=== PATIENT | female | born 1955 | race African-American/Black ===

== ENCOUNTER 2018-05-09 19:47 | Emergency (ER) | payer BC ==
[2018-05-09] MEDS ORDERED: ASPIRIN 81 MG TABLET, CHEWABLE PO ONE (19:59)
--- NOTE | 2018-05-09 20:34 | ER Document Report ---
ED Medical Screen (RME) - General Chief Complaint: Chest Pain > 30 Stated Complaint: CHEST PAIN Time Seen by Provider: 05/09/18 20:26 Primary Care Provider: MUNIRA LOYD MD [Primary Care Provider] - Follow up as needed Notes: Patient is a 8-year-old female who presents to the emergency department with a chief complaint of chest pain and shortness of breath. Her pain started around 1430 this afternoon. Her pain is in her anterior mid chest. She states it hurts when she stands up and when she walks. Nothing makes the pain better. The pain is constant. She was bending over at the time that she had her chest pain. She has had an episode of chest pain before and had a stress test 2 to 3 years ago when she was admitted for an ACS rule out [facility] She has not followed up with a ceramic research engineer since then. She has past medical history of hypertension, hyperlipidemia, seizures, and hypothyroidism. Exam: Lungs sounds clear; S1-S2 normal rate and rhythm I have greeted and performed a rapid initial assessment of this patient. A comprehensive ED assessment and evaluation of the patient, analysis of test results and completion of medical decision making process will be conducted by an additional ED providers. TRAVEL OUTSIDE OF THE [place] IN LAST 30 DAYS: No - Related Data Allergies/Adverse Reactions: acetaminophen [From Percocet] Allergy (Verified 05/09/18 19:48) oxycodone [From Percocet] Allergy (Verified 05/09/18 19:48) Physical Exam - Vital signs Vitals: Temp Pulse Resp BP Pulse Ox 99.3 F 93 18 152/77 H 100 05/09/18 20:11 05/09/18 20:11 05/09/18 20:11 05/09/18 20:11 05/09/18 20:11 Course - Vital Signs Vital signs: Temp Pulse Resp BP Pulse Ox 99.3 F 93 18 152/77 H 100 05/09/18 20:11 05/09/18 20:11 05/09/18 20:11 05/09/18 20:11 05/09/18 20:11 Doctor's Discharge - Discharge Referrals: MUNIRA LOYD MD [Primary Care Provider] - Follow up as needed
--- NOTE | 2018-05-09 20:46 | RADIOLOGY REPORT (SQ) ---
EXAM DESCRIPTION: XR CHEST 1 VIEW COMPLETED DATE/TME: 05/09/2018 19:59 CLINICAL HISTORY: 62 years, Female, cp Findings: Heart is not enlarged. Lungs are clear. No pneumothorax. No pleural effusions. IMPRESSION: No acute disease.
[2018-05-09 21:26] LABS: APPEARANCE,URINE CLEAR; BILIRUBIN,URINE NEGATIVE (NEGATIVE); COLOR,URINE YELLOW; GLUCOSE, URINE NEGATIVE (NEGATIVE); KETONES,URINE NEGATIVE (NEGATIVE); LEUKOCYTE ESTERASE,URINE NEGATIVE (NEGATIVE); NITRITE,URINE NEGATIVE (NEGATIVE); PROTEIN,URINE NEGATIVE (NEGATIVE); URINE SPECIFIC GRAVITY 1.012; UROBILINOGEN,URINE NEGATIVE mg/dL (<2.0)
[2018-05-09 21:39] LABS: ABSOLUTE LYMPHOCYTES (AUTO) 0.7 10^3/uL (0.5-4.7); ABSOLUTE MONOCYTES (AUTO) 0.4 10^3/uL (0.1-1.4); ABSOLUTE NEUT (AUTO) 4.8 10^3/uL (1.7-8.2); BASOPHILS % (AUTO) 0.5 % (0-2); EOSINOPHILS % (AUTO) 0.8 % (0-6); HEMATOCRIT 37.4 % (36.0-47.0); HEMOGLOBIN 12.8 g/dL (12.0-15.5); LYMPHOCYTES % (AUTO) 12.3 % (13-45); MEAN CORPUSCULAR HEMOGLOBIN 28.8 pg (27.0-33.4); MEAN CORPUSCULAR HGB CONC 34.2 g/dL (32.0-36.0); MEAN CORPUSCULAR VOLUME 84 fl (80-97); MONOCYTES % (AUTO) 7.2 % (3-13); PLATELET COUNT 227 10^3/uL (150-450); RED BLOOD COUNT 4.44 10^6/uL (3.72-5.28); RED CELL DISTRIBUTION WIDTH 15.4 % (11.5-14.0); SEGMENTED NEUTROPHILS % (AUTO) 79.2 % (42-78); TOTAL CELLS COUNTED % (AUTO) 100 %
[2018-05-09 21:53] LABS: ALANINE AMINOTRANSFERASE 28 U/L (9-52); ALBUMIN 4.4 g/dL (3.5-5.0); ALKALINE PHOSPHATASE 139 U/L (38-126); ANION GAP 10 (5-19); ASPARTATE AMINO TRANSFERASE 35 U/L (14-36); BILIRUBIN,DIRECT 0.2 mg/dL (0.0-0.4); BILIRUBIN,TOTAL 0.4 mg/dL (0.2-1.3); BLOOD UREA NITROGEN 17 mg/dL (7-20); CALCIUM 9.7 mg/dL (8.4-10.2); CARBON DIOXIDE 28 mmol/L (22-30); CHLORIDE 102 mmol/L (98-107); CREATINE KINASE 446 U/L (30-135); GLUCOSE 106 mg/dL (75-110); POTASSIUM 4.4 mmol/L (3.6-5.0); SODIUM 139.9 mmol/L (137-145); TOTAL PROTEIN 7.7 g/dL (6.3-8.2)
[2018-05-09] MEDS ORDERED: NORMAL SALINE 500 ML IV ONE (22:02)
[2018-05-09] MEDS ORDERED: KETOROLAC TROMETHAMINE INJ/PF 30 MG/1 ML SDV IV ONE (22:02)
[2018-05-09 22:05] LABS: CREATINE KINASE MB 3.46 ng/mL (<4.55); TROPONIN I < 0.012 ng/mL
--- NOTE | 2018-05-09 22:16 | ER Document Report ---
ED General - General Chief Complaint: Chest Pain > 30 Stated Complaint: CHEST PAIN Time Seen by Provider: 05/09/18 20:26 Primary Care Provider: MUNIRA LOYD MD [Primary Care Provider] - Follow up as needed JADE AREVALO MD [ACTIVE STAFF] - Follow up as needed Notes: This is a 8-year-old female patient emergency department complaining of pain on the left side of her chest. Patient states that hurts right along the sternum. Hurts with taking a deep breath. Hurts when she moves. Denies any significant shortness of breath but sometimes pain takes her breath away. No prior history of heart disease. No prior history of stroke. No significant family medical problems. TRAVEL OUTSIDE OF THE [place] IN LAST 30 DAYS: No - HPI Onset: Just prior to arrival Onset/Duration: Waxing and waning Quality of pain: Sharp Severity: Moderate Pain Level: 3 Associated symptoms: None - Related Data Allergies/Adverse Reactions: acetaminophen [From Percocet] Allergy (Verified 05/09/18 19:48) oxycodone [From Percocet] Allergy (Verified 05/09/18 19:48) Past Medical History - General Information source: Patient - Social History Smoking Status: Never Smoker Drug Abuse: None Lives with: Spouse/Significant other Family History: Reviewed & Not Pertinent Patient has suicidal ideation: No Patient has homicidal ideation: No - Past Medical History Cardiac Medical History: Reports: Hx Hypercholesterolemia, Hx Hypertension Renal/ Medical History: Denies: Hx Peritoneal Dialysis Past Surgical History: Reports: Hx Orthopedic Surgery - hip Review of Systems - Review of Systems Notes: Constitutional: denies: Chills, Diaphoresis, Fever, Malaise, Weakness EENT: denies: Eye discharge, Blurred vision, Tearing, Double vision, Nose congestion, Nose discharge, Throat swelling, Mouth pain Cardiovascular: Complains of chest pain. Shortness of breath. Respiratory: denies: Cough, Hurts to breathe, Wheezing, Shortness of breath Gastrointestinal: denies: Abdominal pain, Diarrhea, Nausea, Vomiting, Black stools, bright red blood in stool Genitourinary: denies: Burning, Dysuria, Discharge, Frequency, Flank pain, Hematuria Musculoskeletal: denies: Joint pain, Joint swelling, Muscle pain, Muscle stiffness, back pain Hematologic/Lymphatic: denies: Anemia, Easy bleeding, Easy bruising, Blood clots Neurological/Psychological: denies: Confusion, Dementia, Depression, Loss of consciousness Skin: No lesions, no masses, no skin breakdown, no abscesses Physical Exam - Vital signs Vitals: Temp Pulse Resp BP Pulse Ox 99.3 F 93 18 152/77 H 100 05/09/18 20:11 05/09/18 20:11 05/09/18 20:11 05/09/18 20:11 05/09/18 20:11 Interpretation: Normal - General General appearance: Appears well, Alert - HEENT Head: Normocephalic, Atraumatic Eyes: Normal Pupils: PERRL - Respiratory Respiratory status: No respiratory distress Chest status: Nontender Breath sounds: Normal Chest palpation: Normal - Cardiovascular Rhythm: Regular Heart sounds: Normal auscultation Murmur: No Notes: Patient has tenderness to palpation along the costochondral margin of the left sternum. Palpation reproduces patient's symptoms. - Abdominal Inspection: Normal Distension: No distension Bowel sounds: Normal Tenderness: Nontender Organomegaly: No organomegaly - Back Back: Normal, Nontender - Extremities General upper extremity: Normal inspection, Nontender, Normal color, Normal ROM, Normal temperature General lower extremity: Normal inspection, Nontender, Normal color, Normal ROM, Normal temperature, Normal weight bearing. No: Viji's sign - Neurological Neuro grossly intact: Yes Cognition: Normal Orientation: AAOx4 Leandro Coma Scale Eye Opening: Spontaneous Leandro Coma Scale Verbal: Oriented [place] Coma Scale Motor: Obeys Commands Leandro Coma Scale Total: 15 Speech: Normal Motor strength normal: LUE, RUE, LLE, RLE Sensory: Normal - Psychological Associated symptoms: Normal affect, Normal mood - Skin Skin Temperature: Warm Skin Moisture: Dry Skin Color: Normal Course - Re-evaluation Re-evalutation: 05/10/18 00:50 Patient has clearly reproducible left-sided chest wall pain where the sternum and ribs meet. This reproduces patient's pain. She has had 2 sets of cardiac troponins which were normal. Patient has had a stress test within the last 24 months which was reportedly normal. This was at [facility]. Has no significant family medical problems concerning for significant cardiac disease. Has a local provider. D-dimer was slightly elevated so a pulmonary angiogram was performed and this was normal. At this time I think patient is safe for outpatient follow-up. Patient feels better. Comfortable discharging at this time in stable condition. 05/10/18 02:34 05/10/18 02:34 Laboratory 05/09/18 05/09/18 05/09/18 20:20 21:15 21:15 WBC 6.0 RBC 4.44 Hgb 12.8 Hct 37.4 MCV 84 MCH 28.8 MCHC 34.2 RDW 15.4 H Plt Count 227 Seg Neutrophils % 79.2 H Lymphocytes % 12.3 L Monocytes % 7.2 Eosinophils % 0.8 Basophils % 0.5 Absolute Neutrophils 4.8 Absolute Lymphocytes 0.7 Absolute Monocytes 0.4 Absolute Eosinophils 0.0 Absolute Basophils 0.0 D-Dimer Sodium 139.9 Potassium 4.4 Chloride 102 Carbon Dioxide 28 Anion Gap 10 BUN 17 Creatinine 0.94 Est GFR ( Amer) > 60 Est GFR (Non-Af Amer) > 60 Glucose 106 Calcium 9.7 Total Bilirubin 0.4 Direct Bilirubin 0.2 Neonat Total Bilirubin Not Reportable Neonat Direct Bilirubin Not Reportable Neonat Indirect Bili Not Reportable AST 35 ALT 28 Alkaline Phosphatase 139 H Creatine Kinase 446 H CK-MB (CK-2) Troponin I Total Protein 7.7 Albumin 4.4 Urine Color YELLOW Urine Appearance CLEAR Urine pH 6.0 Ur Specific [place] 1.012 Urine Protein NEGATIVE Urine Glucose (UA) NEGATIVE Urine Ketones NEGATIVE Urine Blood SMALL H Urine Nitrite NEGATIVE Urine Bilirubin NEGATIVE Urine Urobilinogen NEGATIVE Ur Leukocyte Esterase NEGATIVE Urine WBC (Auto) 1 Urine RBC (Auto) 4 Squamous Epi Cells Auto 1 Urine Mucus (Auto) RARE Urine Ascorbic Acid NEGATIVE 05/09/18 05/09/18 05/09/18 21:15 21:15 23:55 WBC RBC Hgb Hct MCV MCH MCHC RDW Plt Count Seg Neutrophils % Lymphocytes % Monocytes % Eosinophils % Basophils % Absolute Neutrophils Absolute Lymphocytes Absolute Monocytes Absolute Eosinophils Absolute Basophils D-Dimer 0.77 H Sodium Potassium Chloride Carbon Dioxide Anion Gap BUN Creatinine Est GFR ( Amer) Est GFR (Non-Af Amer) Glucose Calcium Total Bilirubin Direct Bilirubin Neonat Total Bilirubin Neonat Direct Bilirubin Neonat Indirect Bili AST ALT Alkaline Phosphatase Creatine Kinase CK-MB (CK-2) 3.46 Troponin I < 0.012 < 0.012 Total Protein Albumin Urine Color Urine Appearance Urine pH Ur Specific [place] Urine Protein Urine Glucose (UA) Urine Ketones Urine Blood Urine Nitrite Urine Bilirubin Urine Urobilinogen Ur Leukocyte Esterase Urine WBC (Auto) Urine RBC (Auto) Squamous Epi Cells Auto Urine Mucus (Auto) Urine Ascorbic Acid 05/10/18 02:35 Chest X-Ray 05/09/18 19:59 IMPRESSION: No acute disease. Chest/Abdomen CTA 05/09/18 23:34 IMPRESSION: No acute pulmonary embolism. - Vital Signs Vital signs: Temp Pulse Resp BP Pulse Ox 99.0 F 93 12 153/82 H 96 05/09/18 22:20 05/09/18 20:11 05/10/18 01:26 05/10/18 01:31 05/10/18 00:00 - Laboratory Result Diagrams: 05/09/18 21:15 05/09/18 21:15 Laboratory results interpreted by me: 05/09/18 05/09/18 05/09/18 20:20 21:15 21:15 RDW 15.4 H Seg Neutrophils % 79.2 H Lymphocytes % 12.3 L D-Dimer Alkaline Phosphatase 139 H Creatine Kinase 446 H Urine Blood SMALL H 05/09/18 21:15 RDW Seg Neutrophils % Lymphocytes % D-Dimer 0.77 H Alkaline Phosphatase Creatine Kinase Urine Blood - EKG Interpretation by Me EKG shows normal: Sinus rhythm, Jensen, Intervals, QRS Complexes, ST-T Waves Additional EKG results interpreted by me: 05/10/18 02:36 No significant signs of ischemia. Has a borderline T wave abnormality in aVL. Discharge - Discharge Clinical Impression: Chest wall pain Condition: Good Disposition: HOME, SELF-CARE Instructions: Anti-Inflammatory Medication ([facility]), Chest Wall Pain ([facility]), Chest Pain of Unclear Cause ([facility]) Additional Instructions: If your chest pain is getting worse and no better with medication we have prescribed or you develop any worsening symptoms please do not hesitate to return. It does not look like you are having a heart attack or blood clot in the lung based on her workup today. This will require outpatient follow-up. I have given you information for a real estate paralegal. Please call their office to make an appointment they will be more than happy to see you. Prescriptions: Ketorolac Tromethamine [Toradol 10 mg Tablet] 10 mg PO Q6HP PRN 5 Days #20 tabl et PRN Reason: Ranitidine HCl [Zantac] 150 mg PO BID 10 Days #20 tablet Referrals: MUNIRA LOYD MD [Primary Care Provider] - Follow up as needed AJDE AREVALO MD [ACTIVE STAFF] - Follow up as needed
[2018-05-10] MEDS ORDERED: KETOROLAC TROMETHAMINE INJ/PF 30 MG/1 ML SDV IV ONE (00:30)
--- NOTE | 2018-05-10 00:37 | RADIOLOGY REPORT (SQ) ---
CT CHEST ANGIOGRAPHY WITHOUT THEN WITH IV CONTRAST HISTORY: Shortness of breath. COMPARISON: None. TECHNIQUE: CT angiogram of the chest with IV contrast. 3-D MIP images were obtained in coronal and sagittal reconstructions. This exam was performed according to our departmental dose-optimization program, which includes automated exposure control, adjustment of the mA and/or kV according to patient size and/or use of iterative reconstruction technique. FINDINGS: No filling defects are identified in the pulmonary trunk, main left and right pulmonary arteries, or the segmental branches. No aortic aneurysm or dissection is seen. The thyroid gland is normal. No mediastinal or hilar adenopathy. The heart size is normal without pericardial effusion. No consolidation, pleural effusion, or pneumothorax is identified. There is mild atelectasis in the right lower lobe. The visualized upper abdomen demonstrates no acute findings. No acute osseous findings are seen. IMPRESSION: No acute pulmonary embolism.
[2018-05-10] MEDS ORDERED: HYDROCODONE/ACETAMINOPHEN 5-325 MG (6 TAB/ER DISP) PO PRN (01:06)
[2018-05-10 01:34] VITALS: BP 153/82
--- NOTE | 2018-05-10 07:53 | EKG REPORT ---
SEVERITY:- BORDERLINE ECG - SINUS RHYTHM BORDERLINE T ABNORMALITIES, INFERIOR LEADS : Confirmed by: Salo Tamayo MD 10-May-2018 07:52:46
== END 2018-05-10 01:54 | disposition home or self-care (01) ==
LOC: ER 19:47
DX: R07.89 Other chest pain (principal); E78.00 Pure hypercholesterolemia, unspecified; I10 Essential (primary) hypertension; Z88.6 Allergy status to analgesic agent
CPT/HCPCS: 93005; 99285; 96374; 36415; 82553; 82550; 85025; 80053; 81001; 84484; 85379; 71045; 71275; 93010; J1885; J7040; 96361